=== PATIENT | female | born 1935 | race Caucasian/White ===

== ENCOUNTER → 2017-09-26 | Outpatient (CLI) | payer MEDICARE ==
[~2017-09-26] MED LIST: ASPIRIN81 MG PO; CLONAZEPAM0.25 MG PO; CLOPIDOGREL75 MG PO; DICYCLOMINE HCL10 MG PO; FUROSEMIDE40 MG PO; IOPAMIDOL 300MG/ML 100 ML INFUS..BTL IV ONE; IOPAMIDOL 370 MG/ML 200 ML INFUS..BTL INJ ONE; KLOR-CON M1010 MEQ PO; LEVOTHYROXINE50 MCG PO; LEVOTHYROXINE88 MCG PO; LOSARTAN POTAS100 MG PO; LOSARTAN POTASS25 MG PO; NIFEDICAL XL30 MG PO; OMEPRAZOLE40 MG PO; SODIUM CHLORIDE 0.9% 50ML 50 ML ONE; Z.0.ASPIR 8181 MG PO; Z.0.ATENOLOL25 MG PO; Z.0.BENICAR40 MG PO; Z.0.CLONAZEPAM0.5 MG PO; Z.0.COLACE50 MG PO; Z.0.NIFEDICAL XL30 M PO; Z.0.OMEPRAZOLE40 MG PO; Z.0.PLAVIX75 MG PO; Z.0.VITAMIN D50000 U PO; Z.1.LEVOTHYROXINE100 PO
[2017-09-26 11:36] LABS: BLOOD UREA NITROGEN 16 mg/dL (7-26); BUN/CREATININE RATIO 19 (6-25); CREATININE, SERUM 0.86 mg/dL (0.57-1.11); EST GLOMERULAR FILTRATION RATE > 60 ML/MIN (60-)
--- NOTE | 2017-09-27 08:34 | Diagnostic Imaging Report ---
PROCEDURE: CTA ABD/PEL/BILATERAL LOWER EXT RUNOFF W \T\ W/O CONTRAST COMPARISON:None. INDICATIONS:ATHEROSCLEROSIS OF CONFEDERATED SALISH ARTERIES TECHNIQUE: Multi-detector CT technology with Dose Reduction was employed. Images were obtained after the administration of 100 cc of Omnipaque 350 intravenously. For optimization of anatomic evaluation, multiplanar and volume rendering reconstructions were performed. Advanced 3-D off-line postprocessing were performed on a dedicated stand-alone workstation under the direct supervision of the interpreting physician. FINDINGS: Abdominal aorta and iliac vessels: Scattered atherosclerotic changes are present throughout the abdominal aorta and bilateral lower extremity runoff. Minimal amount of plaque is noted around the origins of the great vessels. The superior mesenteric, inferior mesenteric, and celiac arteries are patent. Bilateral renal arteries are patent. The common, internal, and external iliac arteries are patent bilaterally. Femoral-popliteal vessels: Multiple short segment stenoses, without significant narrowing, are present. The common, superficial, and profunda femoral arteries are patent. Infrapopliteal vessels: Multiple short segment stenoses, without segmental narrowing, are present in the popliteal and infrapopliteal vessels bilaterally. The above the knee and below the knee segments of the popliteal artery are patent. The right anterior tibial, posterior tibial, and peroneal arteries are patent. The left anterior tibial artery is occluded at the level of the calf. Patent left posterior tibial and peroneal arteries. Patent right three vessel runoff is present. Patent left two-vessel runoff is present. Abdominal and Pelvic soft-tissues and organs: Lung bases: No focal consolidation or parenchymal mass. No pleural effusion or pneumothorax. Incompletely visualized cardiac pacing leads. Liver: Normal parenchyma. No focal mass. Biliary: Normal gallbladder. No intrahepatic or extrahepatic biliary duct dilation. Spleen: No splenomegaly. No focal mass. Pancreas: Normal enhancement. No pancreatic duct dilation. No focal mass or peripancreatic soft tissue inflammatory changes. Adrenal Glands: 9 mm right adrenal nodule, too small to characterize. No left adrenal nodule. Kidneys: No obstructing calculi, hydronephrosis, or solid mass. GI: The stomach, small bowel, and colon are unremarkable. No air-fluid levels. Appendectomy. Postoperative changes and segmental small bowel resection. Multiple diverticula are present in the descending and sigmoid colon, without adjacent soft tissue inflammatory changes. A moderate amount of retained feces limits intraluminal evaluation of the colon. Peritoneum/Retroperitoneum: No pneumoperitoneum or free intraperitoneal fluid. No lymphadenopathy. No drainable fluid collection. Reproductive Organs: Hysterectomy. No ovaries are visualized. Musculoskeletal: No acute sclerotic or lucent lesion. Degenerative changes of the lumbar spine. 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 Patent two vessel runoff to the left lower extremity. Patent three-vessel runoff to the right lower extremity. Right adrenal nodule, too small to characterize. Attention on followup is recommended. Diverticulosis without evidence of diverticulitis. Dictated by: Sachin Carbajal M.D. on 09/27/2017 at 8:34 Electronically approved by: Sachin Carbajal M.D. on 09/27/2017 at 8:34
== END ==
LOC: CT 10:16
DX: I70.202 Unspecified atherosclerosis of native arteries of extremities, left leg (principal)
CPT/HCPCS: 36415; 75635; 82565; 84520; Q9967